=== PATIENT | female | born 1945 | race Caucasian/White ===

== ENCOUNTER 2019-02-28 15:32 | Emergency (ER) | payer OTHER ==
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
[2019-02-28 16:56] LABS: Absolute Lymphocytes (CBC) 4.3 K/uL (0.7-4.9); Absolute Neutrophil 7.9 K/uL (1.8-8.0); Basophils % 0.7 % (0-1.3); Eosinophils % 1.1 % (0-4.4); Hematocrit 44.5 % (36.0-45.0); Lymphocytes % 31.8 % (15.3-44.8); MPV 10.3 fL (7.6-11.3); Monocytes % 7.8 % (3.3-12.3); RBC Red Blood Cell Count 5.02 M/uL (3.86-4.86)
[2019-02-28 17:15] LABS: Potassium 3.1 mmol/L (3.5-5.1)
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
[2019-02-28] MEDS ORDERED: POTASSIUM CL SA 10 MEQ TAB PO ONE (17:55)
== END 2019-02-28 17:51 | disposition home or self-care (01) ==
LOC: ER 15:32
DX: S30.1XXA Contusion of abdominal wall, initial encounter (principal); S40.811A Abrasion of right upper arm, initial encounter; V49.40XA Driver injured in collision with unspecified motor vehicles in traffic accident, initial encounter; J45.909 Unspecified asthma, uncomplicated; Z88.5 Allergy status to narcotic agent; Z88.8 Allergy status to other drugs, medicaments and biological substances; Z91.048 Other nonmedicinal substance allergy status
CPT/HCPCS: 36415; 70450; 71250; 72125; 80048; 85025; 86850; 86900; 86901; 99285